=== PATIENT | female | born 1935 | race Caucasian/White ===

== ENCOUNTER 2018-07-23 22:59 | Emergency (ER) | payer OTHER, MEDICARE ==
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
[2018-07-24] MEDS ORDERED: ACETAMINOPHEN 325 MG TABLET PO ONE (01:50)
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
[2018-07-24 05:39] VITALS: BP 133/66
--- NOTE | 2018-07-24 19:17 | EKG REPORT ---
SEVERITY:- BORDERLINE ECG - SINUS RHYTHM BORDERLINE T WAVE ABNORMALITIES : Confirmed by: Brie Thompson MD 24-Jul-2018 19:16:41
== END 2018-07-24 04:50 | disposition home or self-care (01) ==
LOC: ER 22:59
DX: S82.842A Displaced bimalleolar fracture of left lower leg, initial encounter for closed fracture (principal); R07.9 Chest pain, unspecified; M25.572 Pain in left ankle and joints of left foot; M79.672 Pain in left foot; V49.50XA Passenger injured in collision with unspecified motor vehicles in traffic accident, initial encounter; Z79.82 Long term (current) use of aspirin
CPT/HCPCS: 71046; 93005; 93010; 99284